=== PATIENT | female | born 1990 | race American Indian/Alaskan Native ===

== ENCOUNTER 2020-03-13 18:13 | Outpatient (CLI) | payer MEDICAID ==
[2020-03-13 19:44] VITALS: BP 131/81
[2020-03-13] MEDS ORDERED: FAMOTIDINE 20 MG TAB PO ONE (20:16)
== END 2020-03-13 20:42 | disposition home or self-care (01) ==
LOC: TRG 18:13 → APU 18:14 → TRG 20:42
PROVIDERS: ATTEND Obstetrics & Gynecology
DX: O26.893 Other specified pregnancy related conditions, third trimester (principal); R10.9 Unspecified abdominal pain; R12 Heartburn; M54.5 Low back pain; Z3A.37 37 weeks gestation of pregnancy
CPT/HCPCS: 59025

== ENCOUNTER 2020-03-17 18:07 | Inpatient (IN) | payer MEDICAID ==
[2020-03-17] MEDS ORDERED: AMPICILLIN/NS 2 GM/100 ML 2 GM/100 ML BAG IV ONE (18:46)
[2020-03-17] MEDS ORDERED: TERBUTALINE 1 MG/1 ML INJ SUB-Q PRN (18:46)
[2020-03-17] MEDS ORDERED: ePHEDrine SULFATE 50 MG/1 ML INJ IV PRN ×2 (18:46→20:40)
[2020-03-17] MEDS ORDERED: ACETAMINOPHEN 325 MG TAB PO PRN (18:46)
[2020-03-17] MEDS ORDERED: LIDOCAINE (2%) 20 MG/1 ML VIAL 20 ML MDV INFILTRATI ONE (18:46)
[2020-03-17] MEDS ORDERED: MINERAL OIL 30 ML ORAL LIQD PO PRN (18:46)
[2020-03-17] MEDS ORDERED: LACTATED RINGERS 1,000 ML IV SCH (19:00)
[2020-03-17] MEDS ORDERED: OXYTOCIN DRIP 30 UNITS/500 ML BAG IV SCH (19:00)
[2020-03-17] MEDS ORDERED: OXYTOCIN 20 UNIT/1000ML DRIP 20 UNITS/1,000 ML BAG IV SCH (19:00)
--- NOTE | 2020-03-17 19:02 | History and Physical Report ---
History of Present Illness Date of examination: 03/17/20 Date of admission: 03/17/20 18:25 Chief complaint: Leaking of water from vagina. History of present illness: 29 year old presents with complaint of leaking of water from vagina; unsure time today that water started leaking, possibly at 5:00 PM. Patient reports contractions every 5 minutes. Patient denies vaginal bleeding. Patient received care at [facility]; records are not available. Was able to obtain some records via computer. LMP 06/24/19. EDC 03/30/2020. significant for the following: elevated 1 hour sugar test (pt. did not take 3 hour OGTT), noncompliance with care (missed multiple visits), depression (not on medications), marijuana use during , IUGR (was seen by [facility] but missed multiple appointments), sickle cell trait. labs are as follows: A+, antibody screen negative, rubella immune, hepatitis B surface antigen negative, HIV negative, RPR nonreactive, hemoglobin electrophoresis , gonorrhea negative, chlamydia negative, trichomonas negative, GBS unknown, AFP tetra negative, 1 hour sugar test 158, pt. did not take 3 hour OGTT. Past History Past Medical History: no pertinent history Past Surgical History: other (hysteroscopy) [facility] History: denies: chlamydia, gonorrhea, hepatitis B, hepatitis C, herpes, HIV, syphilis, trichomonas Family/Genetic History: diabetes, other (renal failure) Social history: single, lives with family, smoking (smokes marijuana). denies: alcohol abuse, prescription drug abuse, IV drug use - Obstetrical History Expected Date of Delivery: 03/30/20 Actual Gestation: 38 Week(s) 1 Day(s) : 2 Para: 1 Hx # Term Pregnancies: 1 Number of Pregnancies: 0 Spontaneous Abortions: 0 Induced : 0 Number of Living Children: 1 Medications and Allergies Allergies Allergy/AdvReac Type Severity Reaction Status Date / Time No Known Allergies Allergy Verified 03/15/14 23:23 Home Medications Medication Instructions Recorded Confirmed Last Taken Type Iron 18 mg PO DAILY 10/05/13 03/15/14 03/15/14 14:00 History Ibuprofen [Motrin 600 MG tab] 800 mg PO Q6H #30 tablet 10/25/13 03/15/14 03/15/14 14:00 Rx Active Meds: Active Medications Acetaminophen (Tylenol) 650 mg PO Q4H PRN PRN Reason: Pain, Mild (1-3) Ephedrine Sulfate (Ephedrine Sulfate) 10 mg IV Q2M PRN PRN Reason: Hypotension Fentanyl (Sublimaze) 100 mcg IV Q2H PRN PRN Reason: Pain,Severe (7-10) LABOR PAIN Oxytocin/Sodium Chloride (Pitocin/Ns 30 Unit/500ml) 30 units in 500 mls @ 2 mls/hr IV TITR BEBE; Protocol Lactated Ringer's (Lactated Ringers) 1,000 mls @ 125 mls/hr IV DIRECT BEBE Oxytocin/Sodium Chloride (Pitocin/Ns 20 Unit/1000ml Drip) 20 units in 1,000 mls @ 125 mls/hr IV DIRECT BEBE Ampicillin Sodium (Ampicillin/Ns 2 Gm/100 Ml) 2 gm in 100 mls @ 100 mls/hr IV ONCE ONE; Protocol Stop: 03/17/20 19:45 Ampicillin Sodium (Ampicillin/Ns 1 Gm/50 Ml) 1 gm in 50 mls @ 100 mls/hr IV Q4HR BEBE; Protocol Lidocaine (Xylocaine 2%) 20 ml INFILTRATI ONCE ONE Stop: 03/17/20 18:47 Mineral Oil (Mineral Oil) 30 ml PO QHS PRN PRN Reason: Constipation Terbutaline Sulfate (Brethine) 0.25 mg SUB-Q ONCE PRN PRN Reason: Hyperstimulation/Hypertonicity Review of Systems All systems: negative (leaking of water from vagina, contractions) - Vital Signs Vital signs: Vital Signs Pulse BP 85 127/76 03/17/20 18:18 03/17/20 18:18 Temp Pulse Resp BP Pulse Ox 98.2 F 71 18 129/71 03/17/20 18:48 03/17/20 18:48 03/17/20 18:48 03/17/20 18:48 - Physical Exam Abdomen: Positive: normal appearance, soft. Negative: distention, tenderness, guarding, rigidity Genitourinary (Female): Positive: normal external genitalia, normal perenium. Negative: perineal/vulvar lesions (no lesions seen on careful exam with bright light) Vagina: Positive: other (clear fluid pooling/leaking from vagina) Uterus: Positive: enlarged. Negative: tender Anus/Rectum: Positive: normal perianal skin Extremities: Positive: normal. Negative: tenderness, edema - Obstetrical FHR: category 1 Uterine Contraction Monitor Mode: External Cervical Dilatation: 3 Cervical Effacement Percentage: 90 station: -2 Uterine Contraction Pattern: Irregular Uterine Contraction Intensity: Mild Results All other labs normal. Assessment and Plan A: at 38 weeks, 1 day gestation. SROM. Early labor. GBS unknown. IUGR. Noncompliance with care. P: Admit. Continuous EFM. GBS prophylaxis. Obtain records. Pitocin augmentation of labor.
[2020-03-17 19:42] LABS: Hematocrit 32.2 % (30.3-42.9); Hemoglobin 10.8 gm/dl (10.1-14.3); Mean Corpuscular HGB Conc 34 % (30-34); Mean Corpuscular Volume 73 fl (79-97); Platelet Count 228 K/mm3 (140-440); Red Cell Distribution Width 17.2 % (13.2-15.2)
--- NOTE | 2020-03-17 20:39 | Anesthesia Consultation ---
Anesthesia Consult and Med Hx Date of service: 03/17/20 - Airway Anesthetic Teeth Evaluation: Good ROM Head & Neck: Adequate Mental/Hyoid Distance: Adequate Mallampati Class: Class II Intubation Access Assessment: Probably Good - Pulmonary Exam CTA: Yes - Cardiac Exam Cardiac Exam: RRR - Pre-Operative Health Status ASA Pre-Surgery Classification: ASA3 Proposed Anesthetic Plan: Epidural - Pulmonary Hx Smoking: Yes Hx Asthma: No COPD: No Hx Pneumonia: No - Cardiovascular System Hx Hypertension: No - Central Nervous System Hx Seizures: No Hx Psychiatric Problems: No - Endocrine Hx Renal Disease: No Hx End Stage Renal Disease: No Hx Non-Insulin Dependent Diabetes: Yes Hx Hypothyroidism: No Hx Hyperthyroidism: No - Hematic Hx Anemia: No Hx Sickle Cell Disease: No - Other Systems Hx Alcohol Use: Yes (WINE [employer]ERS A COUPLE OF WEEKS AGO - 2.5%) Hx Substance Use: Yes (Marijuana)
[2020-03-17] MEDS ORDERED: NALOXONE 2 MG/2 ML INJ IV PRN (20:40)
[2020-03-17] MEDS ORDERED: fentaNYL-BUPIV 2 MCG/ML-0.125% 200 MCG/100 ML BAG EPIDURAL SCH (21:00)
--- NOTE | 2020-03-17 21:11 | Progress Note ---
Labor Epidural - Labor Epidural Start Time: 20:52 Stop Time: 21:10 Performed by:: HUY GARCÍA Procedure: Patient is requesting epidural for labor pain. H&P, and labs reviewed. Procedure explained, questions answered, consent obtained. Patient in sitting position with blood pressure cuff and pulse ox on and working. Timeout performed immediately before start of procedure. Sterile betadine prep/drape. 3 mL 1% lidocaine skin wheal at L[3]-L[4]. 18-gauge Touhy epidural needle inserted, patient unable to hold still, states she changed her mind and no longer wants epidural. Procedure aborted.
[2020-03-17] MEDS: fentaNYL 100 MCG/2 ML INJ IV PRN (22:16)
[2020-03-18] MEDS: AMPICILLIN/NS 1 GM/50 ML 1 GM/50 ML BAG IV SCH ×3 (00:41→08:33)
[2020-03-18] MEDS: fentaNYL 100 MCG/2 ML INJ IV PRN ×2 (00:41→02:54)
--- NOTE | 2020-03-18 04:46 | Progress Note ---
Labor Epidural - Labor Epidural Start Time: 04:33 Stop Time: 04:38 Performed by:: HUY GARCÍA Procedure: Patient is requesting epidural for labor pain. H&P, and labs reviewed. Procedure explained, questions answered, consent obtained. Patient in sitting position with blood pressure cuff and pulse ox on and working. Timeout performed immediately before start of procedure. Sterile betadine prep/drape. 3 mL 1% lidocaine skin wheal at L[3]-L[4]. 18-gauge Touhy epidural needle advanced to [id number] with saline at [7] cm. Epidural dexmedetomidine [30] mcg administered. Epidural catheter advanced to [12] cm, negative aspiration for blood and csf, negative test dose 3 ml 1.5% lidocaine with epinephrine. Sterile steri-strips and tegaderm applied, followed by tape reinforcement. Patient tolerated procedure well.
--- NOTE | 2020-03-18 06:03 | Event Note ---
Date: 03/18/20 SVE /-1. Early FHR decelerations, moderate variability. Fetus is in OP position. Patient has received epidural.
[2020-03-18] MEDS ORDERED: LIDOCAINE (2%) 20 MG/1 ML VIAL 20 ML MDV INFILTRATI ONE (07:29)
[2020-03-18] MEDS ORDERED: miSOPROStol 200 MCG TAB PR ONE (09:45)
[2020-03-18] MEDS ORDERED: miSOPROStol 200 MCG TAB ONE (09:50)
--- NOTE | 2020-03-18 10:25 | Procedure Note ---
OB Delivery Note - Delivery Date of Delivery: 03/18/20 (0942) Surgeon: DULCE MARIA SHAVER Estimated blood loss: 300cc - Vaginal Delivery presentation: vertex Delivery position: OA Intrapartum events: mult.variable deceleratio Delivery monitor: external uterine, internal FHT Route of delivery: Delivery placenta: manual Delivery cord: other (very short cord; 8 cm long) Delivery laceration: none Anesthesia: epidural Delivery comments: of a live 3'11 female over a intact perineum under epidural anesthesia with Apgars of 3 and 8 at 0942 on 03/18/2020. Very short cord (8 cm long); had to be held at the perineum for clamping and cutting. Manual extraction of placenta due to length and integrity of the cord. Placenta extracted with one attempt. Upon inspection, placenta appears to be complete and intact, borders of placenta intact. Placenta is also very small (11.3 oz; 321g). Placenta to pathology. 800mcg of Cytotec placed per rectum after placental delivery. Fundus is firm and midline located 5 below the U. Lochia is scant. GBS prophylaxis x 4. to NICU due to size. - A at 1 minute: 3 at 5 minutes: 8 Gender: Female (3)
[2020-03-18] MEDS ORDERED: diphenhydrAMINE 25 MG CAP PO PRN (11:00)
[2020-03-18] MEDS ORDERED: PROMETHAZINE 25 MG TAB PO PRN (11:00)
[2020-03-18] MEDS: IBUPROFEN 600 MG TAB PO SCH ×2 (18:57→23:00)
[2020-03-18] MEDS: FERROUS SULFATE 325 MG TAB PO SCH (21:33)
[2020-03-18] MEDS: oxyCODONE /ACETAMINOPHEN 5-325MG TAB PO PRN (22:42)
[2020-03-19 01:08] LABS: Hematocrit 27.3 % (30.3-42.9); Hemoglobin 9.2 gm/dl (10.1-14.3)
[2020-03-19] MEDS: IBUPROFEN 600 MG TAB PO SCH ×3 (06:02→22:24)
[2020-03-19] MEDS: FERROUS SULFATE 325 MG TAB PO SCH ×2 (09:27→22:24)
[2020-03-19] MEDS: PRENATAL VIT27-FE FUMARATE-FOLIC ACID VIT TAB PO SCH (09:27)
--- NOTE | 2020-03-19 10:37 | Progress Note ---
Assessment and Plan - Patient Problems (1) Status post normal vaginal delivery Current Visit: Yes Status: Acute Plan to address problem: Continue routine PP orders Anticipate d/c home tomorrow F/U at office in 6 wks for routine PP visit (2) Anemia Current Visit: Yes Status: Acute Qualifiers: Anemia type: iron deficiency Plan to address problem: Asymptomatic Increase iron rich foods into diet Subjective - Subjective Date of service: 03/19/20 Principal diagnosis: S/P ; PPD#1 Interval history: See admission H & P; OB delivery summary and PP progress notes Patient reports: appetite normal, voiding normally, pain well controlled (with medications), flatus, ambulating normally Moose: in NICU, bottle feeding Objective - Vital Signs Latest vital signs: Vital Signs Temp Pulse Resp BP BP Pulse Ox 03/19/20 00:41 97.9 F 72 20 105/44 98 03/18/20 19:57 98.4 F 70 20 117/64 98 03/18/20 15:00 98.4 F 81 20 123/69 03/18/20 13:25 85 128/59 03/18/20 12:55 67 118/63 03/18/20 12:25 82 112/63 03/18/20 11:54 79 115/56 03/18/20 11:52 97.9 F 03/18/20 11:40 83 115/52 03/18/20 11:25 76 109/55 03/18/20 10:39 64 103/74 Intake and Output 03/18/20 03/19/20 03/19/20 23:59 07:59 15:59 Intake Total 360 480 Output Total 550 Balance -190 480 Intake: Oral 360 480 Output: Urine 550 Void 550 Other: Total, Intake Amount 240 240 Total, Output Amount 550 # Voids Void 1 1 - Exam Breasts: Present: normal Cardiovascular: Present: Regular rate Lungs: Present: Clear to auscultation Abdomen: Present: soft Uterus: Present: firm, fundal height below umbilicus (U-2) Extremities: Present: normal Deep Tendon Reflex Grade: Normal +2 - Labs Labs: Abnormal lab results 03/19/20 Range/Units 00:23 Hgb 9.2 L (10.1-14.3) gm/dl Hct 27.3 L (30.3-42.9) %
--- NOTE | 2020-03-19 10:39 | Discharge Summary ---
Providers - Providers Date of Admission: 03/17/20 18:25 Date of discharge: 03/20/20 Attending physician: GEM SUE JR, MD Primary care physician: SREEKANTH ABEBE Hospitalization Reason for admission: rupture of membranes, IUP at term Delivery: Episiotomy: none Laceration: none Other procedures: none complications: none Discharge diagnosis: IUP at term delivered, other (anemia) [place] baby: female Hospital course: See admission H & P; OB delivery summary and PP progress notes Condition at discharge: Good Disposition: DC-01 TO HOME OR SELFCARE - Discharge Diagnoses (1) Status post normal vaginal delivery Status: Acute (2) Anemia Status: Acute Qualifiers: Anemia type: iron deficiency Plan - Provider Discharge Summary Activity: routine, no sex for 6 weeks, no heavy lifting 4 weeks, no strenuous exercise Diet: other (Iron rich diet) Instructions: routine Additional instructions: [] Smoking cessation referral if applicable(refer to patient education folder for contact #) [] Refer to [facility]'s [facility] Booklet Call your doctor immediately for: * Fever > 100.5 * Heavy vaginal bleeding ( >1 pad per hour) * Severe persistent headache * Shortness of breath * Reddened, hot, painful area to leg or breast - Follow up plan Follow up: SREEKANTH ABEBE MD [Primary Care Provider] - 6 Weeks
--- NOTE | 2020-03-19 16:38 | Post Anesthesia Evaluation ---
- Post Anesthesia Evaluation Patient Participated: Yes Airway Patent: Yes Stable Respiratory Function: Yes Nausea/Vomiting: No Temp > 96.8F: Yes Pain Manageable: Yes Adequeate Hydration: Yes Anesthesia Complications: No Block Receding Appropriately: Yes Patient on Ventilator: No
[2020-03-19] MEDS: oxyCODONE /ACETAMINOPHEN 5-325MG TAB PO PRN (22:28)
[2020-03-20] MEDS: IBUPROFEN 600 MG TAB PO SCH ×3 (05:21→08:05)
[2020-03-20] MEDS: oxyCODONE /ACETAMINOPHEN 5-325MG TAB PO PRN (05:22)
[2020-03-20] MEDS ORDERED: LANOLIN/ZINC/DIMETHICONE (LANSINOH) 7 GM TP ONE (08:40)
[2020-03-20] MEDS: PRENATAL VIT27-FE FUMARATE-FOLIC ACID VIT TAB PO SCH (10:25)
[2020-03-20] MEDS: FERROUS SULFATE 325 MG TAB PO SCH (10:25)
[2020-03-20 17:20] VITALS: BP 129/72
== END 2020-03-20 17:00 | disposition home or self-care (01) | DRG 775 ==
LOC: TRG 18:07 → APU 18:09 → TRG 18:24 → LD 18:25 → OB 03-18 14:27
PROVIDERS: ADMIT Obstetrics & Gynecology; ATTEND Obstetrics & Gynecology
PROC: 10E0XZZ Delivery of Products of Conception, External Approach (ICD-10-PCS; principal; 2020-03-18)
PROC: 3E0R3BZ Introduction of Anesthetic Agent into Spinal Canal, Percutaneous Approach (ICD-10-PCS; 2020-03-18)
PROC: 00HU33Z Insertion of Infusion Device into Spinal Canal, Percutaneous Approach (ICD-10-PCS; 2020-03-18)
DX: O76 Abnormality in fetal heart rate and rhythm complicating labor and delivery (principal); Z37.0 Single live birth; Z3A.38 38 weeks gestation of pregnancy; O36.5930 Maternal care for other known or suspected poor fetal growth, third trimester, not applicable or unspecified; O69.3XX0 Labor and delivery complicated by short cord, not applicable or unspecified; O90.81 Anemia of the puerperium; D50.9 Iron deficiency anemia, unspecified; Z87.891 Personal history of nicotine dependence
CPT/HCPCS: 36415; 59025; 83036; 85014; 85018; 85027; 86850; 86900; 86901; 88307; 96360; 96361; 96365; 96366; G0378; A6250; J0290; J2590; J3010; J7120; Q0169; U0003-CS